=== PATIENT | female | born 1935 | race Caucasian/White ===

== ENCOUNTER 2024-03-26 18:23 | Observation (INO) | payer OTHER ==
[2024-03-26 20:01] LABS: HEMATOCRIT 44.3 % (32.4-45.2); HEMOGLOBIN 14.9 G/dL (10.7-15.3); MCHC 33.7 g/dl (32.0-36.0); MEAN CELL VOLUME 97.9 fl (80-96); MEAN PLT VOLUME 8.6 fl (7.5-11.1); RBC 4.52 10^6/uL (3.60-5.2); RDW 13.5 % (11.6-15.6); WHITE BLOOD COUNT 15.3 10^3/uL (4.0-10.8)
[2024-03-26 20:34] LABS: ALBUMIN 4.2 g/dl (3.4-5.0); BILIRUBIN,TOTAL 1.4 mg/dl (0.2-1); CALCIUM 9.8 mg/dl (8.5-10.1); CREATININE 0.8 mg/dl (0.6-1.3); POTASSIUM 3.9 mmol/L (3.5-5.1); TOT PROT 7.2 g/dl (6.4-8.2)
[2024-03-26 20:45] LABS: EPITHELIAL CELLS 0-5 /hpf
[2024-03-26 21:20] LABS: PLATELET ESTIMATE ADEQUATE
[2024-03-26] MEDS: CEFTRIAXONE 500 MG in DEXTROSE 5%-WATER - 50 ML IVPB ONE (22:49)
[2024-03-27] MEDS ORDERED: DOCUSATE SODIUM 100 MG CAPSULE (FP) PO PRN (00:01)
[2024-03-27] MEDS ORDERED: ACETAMINOPHEN 325 MG TABLET (FP) PO PRN (00:01)
[2024-03-27] MEDS: ASPIRIN 81 MG CHEWABLE TABLETS PO ONE (03:40)
[2024-03-27 06:19] VITALS: BMI 30.8
[2024-03-27] MEDS: LEVOTHYROXINE NA 50 MCG TABLET (FP) PO SCH (06:28)
[2024-03-27 09:25] LABS: CALCIUM 9.5 mg/dl (8.5-10.1); CREATININE 0.8 mg/dl (0.6-1.3); MAGNESIUM 2.1 mg/dL (1.8-2.4); PHOSPHOROUS 3.6 (2.5-4.9); POTASSIUM 3.9 mmol/L (3.5-5.1)
[2024-03-27 09:44] LABS: BASO % 0.2 % (0-2.0); HEMATOCRIT 42.5 % (32.4-45.2); HEMOGLOBIN 14.6 GM/dL (10.7-15.3); LYMPH % 20.7 % (8-40); MCHC 34.3 g/dl (32.0-36.0); MEAN CELL VOLUME 96.1 fl (80-96); MEAN PLT VOLUME 8.2 fl (7.5-11.1); MONO % 11.9 % (3.8-10.2); NEUT % 66.2 % (42.8-82.8); PLATELET COUNT 212 10^3/uL (134-434); RBC 4.42 M/mm3 (3.60-5.2); RDW 14.1 % (11.6-15.6)
[2024-03-27] MEDS: CEFTRIAXONE 1 GM in DEXTROSE 5%-WATER - 50 ML IVPB SCH (10:46)
[2024-03-27] MEDS: ESCITALOPRAM OXALATE 10 MG TABLET PO SCH (10:46)
[2024-03-27] MEDS: ROSUVASTATIN CA 10 MG TABLET PO SCH (21:39)
[2024-03-27] MEDS: ASPIRIN 81 MG CHEWABLE TABLETS PO SCH (21:39)
[2024-03-28 07:23] LABS: INR 1.13 (0.83-1.09); PROTHROMBIN TIME (PATIENT) 12.8 SEC (9.7-13.0)
[2024-03-28 07:47] LABS: HEMATOCRIT 41.7 % (32.4-45.2); HEMOGLOBIN 13.8 G/dL (10.7-15.3); MCH 31.9 pg (25.7-33.7); MEAN CELL VOLUME 96.8 fl (80-96); MEAN PLT VOLUME 8.4 fl (7.5-11.1); PLATELET COUNT 199.1 10^3/uL (134-434); RBC 4.31 10^6/uL (3.60-5.2); RDW 13.5 % (11.6-15.6); WHITE BLOOD COUNT 11.5 10^3/uL (4.0-10.8)
[2024-03-28 07:58] LABS: CALCIUM 8.9 mg/dl (8.5-10.1); CREATININE 0.8 mg/dl (0.6-1.3); PHOSPHOROUS 2.9 (2.5-4.9); POTASSIUM 3.7 mmol/L (3.5-5.1)
[2024-03-28] MEDS: ENOXAPARIN NA (PORCINE) 40 MG/0.4 ML DISP.SYRIN SQ SCH (09:21)
[2024-03-28 09:44] VITALS: RESP 18
[2024-03-28 14:50] VITALS: BP 105/51; PULSE 87; TEMP 98.1
== END 2024-03-28 15:05 | disposition home or self-care (01) ==
LOC: FER 18:23 → FM/S 23:52 → UNDOADMOB 03-27 00:01 → FM/S 03-27 00:01
PROVIDERS: ADMIT Internal Medicine; ATTEND Internal Medicine
PROC: 3E03329 Introduction of Other Anti-infective into Peripheral Vein, Percutaneous Approach (ICD-10-PCS; principal; 2024-03-26)
PROC: 3E013GC Introduction of Other Therapeutic Substance into Subcutaneous Tissue, Percutaneous Approach (ICD-10-PCS; 2024-03-26)
DX: I63.511 Cerebral infarction due to unspecified occlusion or stenosis of right middle cerebral artery (principal); I69.852 Hemiplegia and hemiparesis following other cerebrovascular disease affecting left dominant side; R41.0 Disorientation, unspecified; R74.8 Abnormal levels of other serum enzymes; E03.9 Hypothyroidism, unspecified; E78.5 Hyperlipidemia, unspecified; F41.9 Anxiety disorder, unspecified; I25.10 Atherosclerotic heart disease of native coronary artery without angina pectoris; E11.9 Type 2 diabetes mellitus without complications; F03.90 Unspecified dementia, unspecified severity, without behavioral disturbance, psychotic disturbance, mood disturbance, and anxiety; Z85.3 Personal history of malignant neoplasm of breast; Z87.891 Personal history of nicotine dependence; Z88.5 Allergy status to narcotic agent
CPT/HCPCS: 0241U-QW; 36415; 70450-TC; 71045-TC-FY; 72125-TC; 80048; 80053; 81003; 81015; 82607; 82746; 83605; 83690; 83735; 83880; 84100; 84439; 84443; 84484; 85025; 85027; 85610; 85730; 86140; 87086; 93005; 93306-TC; 93880-TC; 96365; 96372; 97116-GP; 97162-GP; 99285-25; G0378